=== PATIENT | female | born 1995 | race Two or more races ===

== ENCOUNTER 2023-01-24 20:17 | Emergency (ER) | payer MEDICAID ==
[~2023-01-24] VITALS: Ht 152.4 cm; Wt 118.2 kg
[2023-01-25] MEDS ORDERED: CEPH-585 PO (00:04)
[2023-01-25 00:09] VITALS: BP 155/97
== END 2023-01-25 00:11 | disposition home or self-care (01) ==
LOC: ER 20:18
DX: L02.412 Cutaneous abscess of left axilla (principal); Z98.890 Other specified postprocedural states; Z79.899 Other long term (current) drug therapy
CPT/HCPCS: 99283